=== PATIENT | female | born 1940 | race Caucasian/White ===

== ENCOUNTER 2016-09-07 21:59 | Inpatient (IN) | payer MEDICARE, OTHER ==
[~2016-09-07] VITALS: Ht 160 cm; Wt 72.7 kg
[~2016-09-07 21:59] MED LIST: ASPIRIN EC81 MG PO; CLARITIN-D 241 EACH PO; LEVAQUIN750 MG PO; LEVEMIR100 UNIT/1 SQ; LIPITOR80 MG PO; MACROBID 100 M100 MG PO; MEDROL DOSEPAK 24 MG PO; MEDROL4 MG PO; NOVOLOG 10100 UNITS1 INJ; ROBITUSSIN DM473 ML PO; VENTOLIN/PROVE0.5 ML INH; ZANTAC150 MG PO
[2016-09-07 23:08] LABS: HEMOGLOBIN 10.9 gm/dl (12.3-15.3); RED BLOOD COUNT 4.11 M/UL (4.00-5.10); WHITE BLOOD COUNT 14.8 K/UL (4.5-11.0)
[2016-10-29] MEDS ORDERED: CATAPRES 0.1MG0.1 MG PO (10:04)
[2016-10-29] MEDS ORDERED: LOPRESSOR100 MG PO (10:04)
[2016-10-29] MEDS ORDERED: DOXEPIN HCL50 MG PO (10:04)
[2016-10-29] MEDS ORDERED: ALBUTEROL2.5 MG/3 M INH (10:05)
[2016-10-29] MEDS ORDERED: HYDRALAZINE HCL50 MG PO (10:05)
[2016-10-29] MEDS ORDERED: LEVEMIR100 UNIT/1 SQ (10:10)
[2016-10-29] MEDS ORDERED: NOVOLOG 10100 UNITS/ SQ (10:20)
[2016-10-29] MEDS ORDERED: DULERA 100 MCG8.8 GM INH (10:24)
[2016-10-29] MEDS ORDERED: DOXYCYCLINE HY100 M2 PO (10:25)
[2016-10-29] MEDS ORDERED: ATROVENT INH S2.5 ML INH (10:25)
[2016-10-29] MEDS ORDERED: SPIRIVA18 MCG INH (10:25)
[2016-10-29] MEDS ORDERED: LIPITOR TAB 1010 MG PO (10:26)
[2016-10-29] MEDS ORDERED: MEDROL DOSEPAK 24 MG PO (10:26)
[2016-10-29] MEDS ORDERED: CARDIZEM30 MG PO (10:26)
[2016-10-29] MEDS ORDERED: ASPIR-LOW81 MG PO (10:26)
[2016-10-29] MEDS ORDERED: ELIQUIS 5 MG TAB5 MG PO (10:27)
[2016-10-29] MEDS ORDERED: PEPCID20 MG PO (10:27)
[2016-10-29] MEDS ORDERED: RANITIDINE HCL150 M1 PO (10:35)
[2016-10-29] MEDS ORDERED: SILVADENE CREAM20 GM TOP (10:36)
[2016-11-02] MEDS ORDERED: ISOSORBIDE MONO60 MG PO (11:10)
[2016-11-02] MEDS ORDERED: BRILINTA 90 MG90 MG PO (11:11)
[2016-11-02] MEDS ORDERED: SYMBICORT 160-1 INHA INH (11:12)
[2016-11-02] MEDS ORDERED: IPRAT-ALBUT 0.5-3 ML INH (11:14)
[2016-11-02] MEDS ORDERED: LEVAQUIN250 MG PO (11:14)
[2016-11-23] MEDS ORDERED: CATAPRES 0.1MG0.1 MG PO (18:55)
[2016-11-27] MEDS ORDERED: LACTINEX PACKET1 PKT PO (12:24)
[2016-11-27] MEDS ORDERED: AUGMENTIN 500-500 MG PO (12:25)
[2016-11-27] MEDS ORDERED: GLUCERNA237 ML PO (12:26)
[2016-11-27] MEDS ORDERED: SANTYL OINT 3030 GM TOP (12:28)
[2016-11-27] MEDS ORDERED: PROTONIX40 MG PO (12:29)
[2016-11-27] MEDS ORDERED: PREDNISONE20 MG PO (12:29)
[2016-11-27] MEDS ORDERED: HYDRALAZINE HCL50 MG PO (18:56)
== END 2016-09-09 19:15 | disposition home or self-care (01) | DRG 308 ==
LOC: ER1 21:59 → ZEROF 09-08 03:05 → PROG CARE 09-08 03:05
PROVIDERS: Family Medicine; ADMIT Internal Medicine
DX: I48.92 Unspecified atrial flutter (principal); I50.33 Acute on chronic diastolic (congestive) heart failure; I11.0 Hypertensive heart disease with heart failure; I48.0 Paroxysmal atrial fibrillation; R07.89 Other chest pain; E11.9 Type 2 diabetes mellitus without complications; J44.9 Chronic obstructive pulmonary disease, unspecified; I25.10 Atherosclerotic heart disease of native coronary artery without angina pectoris; E78.5 Hyperlipidemia, unspecified; I44.7 Left bundle-branch block, unspecified; F17.210 Nicotine dependence, cigarettes, uncomplicated; E66.9 Obesity, unspecified; Z95.5 Presence of coronary angioplasty implant and graft; Z68.28 Body mass index [BMI] 28.0-28.9, adult; Z85.528 Personal history of other malignant neoplasm of kidney; Z85.51 Personal history of malignant neoplasm of bladder; Z99.3 Dependence on wheelchair; Z99.81 Dependence on supplemental oxygen; Z79.4 Long term (current) use of insulin; Z79.51 Long term (current) use of inhaled steroids; Z79.82 Long term (current) use of aspirin; Z79.899 Other long term (current) drug therapy; Z88.5 Allergy status to narcotic agent; Z88.6 Allergy status to analgesic agent; Z90.5 Acquired absence of kidney; Z90.710 Acquired absence of both cervix and uterus; Z90.49 Acquired absence of other specified parts of digestive tract; Z98.890 Other specified postprocedural states; Z82.49 Family history of ischemic heart disease and other diseases of the circulatory system; Z83.3 Family history of diabetes mellitus
CPT/HCPCS: 36415; 71010; 73564; 78452; 80053; 82550; 82553; 82962; 83874; 83880; 84484; 85025; 85610; 85730; 93005; 93017; 94640; 94664; 96372; 96374; 96375; 96376; 99285; A9502; J1650; J1815; J2270; J2785; J2920; J7040

== ENCOUNTER 2016-09-27 12:41 | Emergency (ER) | payer MEDICARE, OTHER ==
[2016-09-27 13:26] LABS: HEMOGLOBIN 11.2 gm/dl (12.3-15.3); RED BLOOD COUNT 4.33 M/UL (4.00-5.10); WHITE BLOOD COUNT 14.9 K/UL (4.5-11.0)
[2016-10-29] MEDS ORDERED: CATAPRES 0.1MG0.1 MG PO (10:04)
[2016-10-29] MEDS ORDERED: DOXEPIN HCL50 MG PO (10:04)
[2016-10-29] MEDS ORDERED: LOPRESSOR100 MG PO (10:04)
[2016-10-29] MEDS ORDERED: HYDRALAZINE HCL50 MG PO (10:05)
[2016-10-29] MEDS ORDERED: ALBUTEROL2.5 MG/3 M INH (10:05)
[2016-10-29] MEDS ORDERED: LEVEMIR100 UNIT/1 SQ (10:10)
[2016-10-29] MEDS ORDERED: NOVOLOG 10100 UNITS/ SQ (10:20)
[2016-10-29] MEDS ORDERED: DULERA 100 MCG8.8 GM INH (10:24)
[2016-10-29] MEDS ORDERED: SPIRIVA18 MCG INH (10:25)
[2016-10-29] MEDS ORDERED: ATROVENT INH S2.5 ML INH (10:25)
[2016-10-29] MEDS ORDERED: DOXYCYCLINE HY100 M2 PO (10:25)
[2016-10-29] MEDS ORDERED: LIPITOR TAB 1010 MG PO (10:26)
[2016-10-29] MEDS ORDERED: MEDROL DOSEPAK 24 MG PO (10:26)
[2016-10-29] MEDS ORDERED: CARDIZEM30 MG PO (10:26)
[2016-10-29] MEDS ORDERED: ASPIR-LOW81 MG PO (10:26)
[2016-10-29] MEDS ORDERED: ELIQUIS 5 MG TAB5 MG PO (10:27)
[2016-10-29] MEDS ORDERED: PEPCID20 MG PO (10:27)
[2016-10-29] MEDS ORDERED: RANITIDINE HCL150 M1 PO (10:35)
[2016-10-29] MEDS ORDERED: SILVADENE CREAM20 GM TOP (10:36)
[2016-11-02] MEDS ORDERED: ISOSORBIDE MONO60 MG PO (11:10)
[2016-11-02] MEDS ORDERED: BRILINTA 90 MG90 MG PO (11:11)
[2016-11-02] MEDS ORDERED: SYMBICORT 160-1 INHA INH (11:12)
[2016-11-02] MEDS ORDERED: LEVAQUIN250 MG PO (11:14)
[2016-11-02] MEDS ORDERED: IPRAT-ALBUT 0.5-3 ML INH (11:14)
[2016-11-23] MEDS ORDERED: CATAPRES 0.1MG0.1 MG PO (18:55)
[2016-11-27] MEDS ORDERED: LACTINEX PACKET1 PKT PO (12:24)
[2016-11-27] MEDS ORDERED: AUGMENTIN 500-500 MG PO (12:25)
[2016-11-27] MEDS ORDERED: GLUCERNA237 ML PO (12:26)
[2016-11-27] MEDS ORDERED: SANTYL OINT 3030 GM TOP (12:28)
[2016-11-27] MEDS ORDERED: PREDNISONE20 MG PO (12:29)
[2016-11-27] MEDS ORDERED: PROTONIX40 MG PO (12:29)
[2016-11-27] MEDS ORDERED: HYDRALAZINE HCL50 MG PO (18:56)
== END 2016-09-27 15:33 | disposition short-term general hospital (02) ==
LOC: ER1 12:41
PROVIDERS: Physician Assistant
DX: J70.5 Respiratory conditions due to smoke inhalation (principal); T20.07XA Burn of unspecified degree of neck, initial encounter; T23.092A Burn of unspecified degree of multiple sites of left wrist and hand, initial encounter; T24.012A Burn of unspecified degree of left thigh, initial encounter; T25.021A Burn of unspecified degree of right foot, initial encounter; T31.11 Burns involving 10-19% of body surface with 10-19% third degree burns; E11.9 Type 2 diabetes mellitus without complications; J44.9 Chronic obstructive pulmonary disease, unspecified; I10 Essential (primary) hypertension; F17.210 Nicotine dependence, cigarettes, uncomplicated; X08.8XXA Exposure to other specified smoke, fire and flames, initial encounter; Z23 Encounter for immunization
CPT/HCPCS: 36415; 71010; 80053; 82550; 82553; 83874; 84484; 85025; 85610; 85730; 90471; 90715; 94664; 96365; 96368; 96375; 99284; J0690; J2405; J2930; J7050